=== PATIENT | female | born 1995 | race Caucasian/White ===

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

== ENCOUNTER 2017-03-24 01:33 | Emergency (ER) | payer OTHER ==
[~2017-03-24] VITALS: Ht 167.6 cm; Wt 56.3 kg
--- NOTE | 2017-03-24 02:17 | EMERGENCY ROOM VISIT NOTE ---
History Report prepared by Reymundo: Arvin Pickering Under the Supervision of: Feliciano LawO. First contact with patient: 01:48 Chief Complaint: FEVER Stated Complaint: FEVER 36+HRS,UPPER RT CHEST PAINS/RIBS History of Present Illness The patient is a 21 year old female who presents to the Emergency Room with complaints of a constant fever for the past two days. The patient additionally complains of sharp rib pain and chest pain which is worsened with deep inspiration, eating, and drinking which started this morning. The patient denies any retching or hard coughing or vomiting. The patient denies any current cough, nausea, vomiting, diarrhea, urinary symptoms, sore throat, rash, leg cramping or swelling. She states that two days ago she was nauseous and light headed. She denies any active medical problems or digestive problems in the past. She took extra strength acetaminophen for the chest pain. She states that her last period was two weeks ago. Source of History: patient Onset: two days ago Position: other (global ) Quality: other (fever) Timing: constant Associated Symptoms: + chest pain, No sorethroat, No cough, No nausea, No vomiting, No diarrhea, No urinary symptoms, No rash Note: Associated symptoms: Rib pain Review of Systems See HPI for pertinent positives & negatives. A total of 10 systems reviewed and were otherwise negative. Past Medical & Surgical Medical Problems: (1) Nexplanon insertion Family History Cancer Social History Smoking Status: Never Smoker Housing Status: lives with roommate Occupation Status: [employer] student Current/Historical Medications Scheduled PRN Acetaminophen (Tylenol), 500-1,000 MG PO DIRECTED PRN for Pain or Fever Allergies Coded Allergies: Aspirin (Verified Allergy, Severe, HIVES, 03/24/17) Physical Exam Vital Signs Date Time Temp Pulse Resp B/P (MAP) Pulse Ox O2 Delivery O2 Flow Rate FiO2 03/24/17 06:17 36.8 61 20 104/58 96 03/24/17 05:37 63 20 99/54 97 Room Air 03/24/17 04:56 37.7 97 16 116/74 98 Room Air 03/24/17 03:51 38.8 96 16 104/49 98 Room Air 03/24/17 03:05 72 17 113/60 99 Room Air 03/24/17 03:05 99 Room Air 03/24/17 01:38 37.3 108 18 94/52 95 Room Air Physical Exam HEENT: Head - normocephalic and atraumatic Pupils are equal, round, and reactive to light. Extraocular eye muscles are intact, and sclera are anicteric. Nose - moist nasal mucosa without discharge. Mouth - moist buccal mucosa. Oropharynx is nonerythematous and there is no tonsillar exudate or edema noted. Neck: Supple; no JVD, nuchal rigidity, cervical lymphadenopathy. Heart: Regular rate and rhythm. There is a normal S1 and S2 with no murmurs, clicks, or gallops appreciated. Lungs: Clear to auscultation bilaterally with no wheezes, rales, or rhonchi. Chest: Reproducible pain with palpation over the anterior, lateral, and inferior chest wall. Abdomen: Soft, completely nontender, nondistended, with good bowel sounds. There are no palpable pulsatile masses or hepatosplenomegaly. There is no guarding, rigidity, or rebound noted. Extremities: No evidence of cyanosis, clubbing, or edema. There are easily palpable peripheral pulses. Skin: warm and dry with good turgor and no rashes. Medical Decision & Procedures ER Provider Diagnostic Interpretation: X-ray results as stated below per interpretation by me: No acute pulmonary infiltrate. No pneumothorax. Laboratory Results 03/24/17 02:10 Red Blood Count 4.56, Mean Corpuscular Volume 88.6, Mean Corpuscular Hemoglobin 30.0, Mean Corpuscular Hemoglobin Concent 33.9, Mean Platelet Volume 10.1, Neutrophils (%) (Auto) 76.1, Lymphocytes (%) (Auto) 13.9, Monocytes (%) (Auto) 9.7, Eosinophils (%) (Auto) 0.1, Basophils (%) (Auto) 0.1, Neutrophils # (Auto) 6.50, Lymphocytes # (Auto) 1.19, Monocytes # (Auto) 0.83, Eosinophils # (Auto) 0.01, Basophils # (Auto) 0.01 03/24/17 02:10 Test 03/24/17 02:10 03/24/17 02:18 White Blood Count 8.55 K/uL (4.8-10.8) Red Blood Count 4.56 M/uL (4.2-5.4) Hemoglobin 13.7 g/dL (12.0-16.0) Hematocrit 40.4 % (37-47) Mean Corpuscular Volume 88.6 fL (80-100) Mean Corpuscular Hemoglobin 30.0 pg (25-34) Mean Corpuscular Hemoglobin Concent 33.9 g/dl (32-36) Platelet Count 148 K/uL (130-400) Mean Platelet Volume 10.1 fL (7.4-10.4) Neutrophils (%) (Auto) 76.1 % Lymphocytes (%) (Auto) 13.9 % Monocytes (%) (Auto) 9.7 % Eosinophils (%) (Auto) 0.1 % Basophils (%) (Auto) 0.1 % Neutrophils # (Auto) 6.50 K/uL (1.4-6.5) Lymphocytes # (Auto) 1.19 K/uL (1.2-3.4) Monocytes # (Auto) 0.83 K/uL (0.11-0.59) Eosinophils # (Auto) 0.01 K/uL (0-0.5) Basophils # (Auto) 0.01 K/uL (0-0.2) RDW Standard Deviation 40.6 fL (36.4-46.3) RDW Coefficient of Variation 12.7 % (11.5-14.5) Immature Granulocyte % (Auto) 0.1 % Immature Granulocyte # (Auto) 0.01 K/uL (0.00-0.02) Prothrombin Time 12.4 SECONDS (9.0-12.0) Prothromb Time International Ratio 1.2 (0.9-1.1) Activated Partial Thromboplast Time 28.9 SECONDS (21.0-31.0) Partial Thromboplastin Ratio 1.1 D-Dimer 200 ug/L FEU (0-500) Urine Color DK YELLOW Urine Appearance CLOUDY (CLEAR) Urine pH 6.5 (4.5-7.5) Urine Specific [place] 1.023 (1.000-1.030) Urine Protein 1+ (NEG) Urine Glucose (UA) NEG (NEG) Urine Ketones 1+ (NEG) Urine Occult Blood NEG (NEG) Urine Nitrite NEG (NEG) Urine Bilirubin NEG (NEG) Urine Urobilinogen NEG (NEG) Urine Leukocyte Esterase MODERATE (NEG) Urine WBC (Auto) >30 /hpf (0-5) Urine RBC (Auto) 0-4 /hpf (0-4) Urine Hyaline Casts (Auto) >30 /lpf (0-5) Urine Epithelial Cells (Auto) >30 /lpf (0-5) Urine Bacteria (Auto) 1+ (NEG) Urine Mucus PRESENT (NONE PRSENT) Anion Gap 7.0 mmol/L (3-11) Est Creatinine Clear Calc Drug Dose 111.7 ml/min Estimated GFR () 140.7 Estimated GFR (Non- 121.4 BUN/Creatinine Ratio 14.7 (10-20) Calcium Level 8.5 mg/dl (8.5-10.1) Total Bilirubin 0.5 mg/dl (0.2-1) Aspartate Amino Transf (AST/SGOT) 15 U/L (15-37) Alanine Aminotransferase (ALT/SGPT) 19 U/L (12-78) Alkaline Phosphatase 70 U/L (45-117) Total Protein 7.2 gm/dl (6.4-8.2) Albumin 4.0 gm/dl (3.4-5.0) Globulin 3.2 gm/dl (2.5-4.0) Albumin/Globulin Ratio 1.3 (0.9-2) Bedside Lactic Acid Venous 0.82 mmol/L (0.90-1.70) Laboratory results per my review. Medications Administered Medications (Trade) Dose Ordered Sig/Sophia Route Start Time Stop Time Status Last Admin Dose Admin Sodium Chloride 1,000 ml @ 999 mls/hr Q1H1M STAT IV 03/24/17 02:34 03/24/17 03:34 DC 03/24/17 02:49 999 MLS/HR Acetaminophen (Tylenol Tab) 1,000 mg STK-MED ONCE PO 03/24/17 03:54 03/24/17 03:55 DC 03/24/17 03:56 1,000 MG Ketorolac Tromethamine (Toradol Inj) 30 mg NOW STAT IV 03/24/17 05:03 03/24/17 05:04 DC 03/24/17 05:14 30 MG Procedure Sodium Chloride IV, Tylenol Tab PO, Toradol IV ED Course 0148: Past medical records reviewed. The patient was evaluated in room B10. A complete history and physical exam was performed. A septic protocol was performed. An IV lock was initiated and labs are drawn as above. 0234: Sodium Chloride 1000 ml @ 999 mls/hr IV. The patient had chest x-ray as described above. 0350:.Tylenol Tab 1000mg PO 0425: I reevaluated the patient, and she was sweating, and her fever broke and temperature was down 0500: I reassessed the patient, and she is going to have a close follow up with [facility] for a recheck 0503: Toradol Inj 30mg IV 0610: I reevaluated the patient, and she was feeling much better. She will be discharged home. Medical Decision The patient is a 21 year old female who presents to the ED with fever. Differential diagnosis includes pneumonia, PE, esophagitis, and URI lab results show: normal white count, normal H&H, lactic acid 0.8, normal LFTs and glucose, normal renal function, D-dimer of 200, urine appears to be cloudy and most likely contaminated but will be sent for culture. This is a 21-year-old female patient presents to the emergency department with right-sided chest pain and fever. The patient has no hypoxia or cough. Chest x -ray shows no evidence of a pneumonia. I spent some time talking to the patient and her boyfriend about her complaint of pain with swallowing. She has no history consistent with an esophageal tear or mediastinitis. The patient was told to return to the emergency department immediately if she developed worsening symptoms. Otherwise, she can follow-up with [facility] later today for recheck. Impression Primary Impression: Right-sided chest pain Additional Impression: Fever Scribe Attestation The scribe's documentation has been prepared under my direction and personally reviewed by me in its entirety. I confirm that the note above accurately reflects all work, treatment, procedures, and medical decision making performed by me. Departure Information Dispostion Home / Self-Care Referrals No Doctor, Assigned (PCP) Forms HOME CARE DOCUMENTATION FORM, IMPORTANT VISIT INFORMATION Patient Instructions My [facility] Additional Instructions Rest Take tylenol for fever. Please follow up at [facility] for a recheck this afternoon. Return to the ER for any worsening symptoms Problem Qualifiers Additional Impression: Fever Fever type: unspecified Qualified Codes: R50.9 - Fever, unspecified
[2017-03-24] MEDS ORDERED: SODIUM CHLORIDE 0.9% 1000ML 1,000 ML IV STA (02:34)
[2017-03-24 02:36] LABS: BASO % 0.1 %; BASO ABS # 0.01 K/uL (0-0.2); COMPLETE YES; EOS % 0.1 %; HEMATOCRIT 40.4 % (37-47); IG% 0.1 %; LYMPH % 13.9 %; LYMPH ABS # 1.19 K/uL (1.2-3.4); MEAN CELL VOLUME 88.6 fL (80-100); MEAN CORPUSCULAR HGB CONC 33.9 g/dl (32-36); MEAN PLATELET VOLUME 10.1 fL (7.4-10.4); MONO % 9.7 %; NEUT % 76.1 %; PLATELET COUNT 148 K/uL (130-400); RED BLOOD COUNT 4.56 M/uL (4.2-5.4); WHITE BLOOD COUNT 8.55 K/uL (4.8-10.8)
[2017-03-24 02:41] VITALS: Ht 167.6 cm; Wt 56.3 kg
[2017-03-24 02:41] LABS: URINE APPEARANCE CLOUDY (CLEAR); URINE BILIRUBIN NEG (NEG); URINE COLOR DK YELLOW; URINE EPITHELIAL CELL AUTO >30 /lpf (0-5); URINE NITRITE NEG (NEG); URINE PH 6.5 (4.5-7.5); URINE SPECIFIC GRAVITY 1.023 (1.000-1.030); UROBILINOGEN NEG (NEG); ZZUR CULT IF INDIC CLEAN CATCH YES
[2017-03-24 02:49] LABS: MANUAL MICROSCOPIC REQUIRED? NO; REVIEW REQ? YES
[2017-03-24 02:57] LABS: INR 1.2 (0.9-1.1); PARTIAL THROMBOPLASTIN RATIO 1.1; PROTHROMBIN TIME (PATIENT) 12.4 SECONDS (9.0-12.0)
[2017-03-24 03:04] LABS: BUN/CREATININE RATIO 14.7 (10-20); CALCIUM 8.5 mg/dl (8.5-10.1); CREATININE 0.72 mg/dl (0.60-1.20); POTASSIUM 3.6 mmol/L (3.5-5.1)
[2017-03-24 03:05] VITALS: O2SAT 99
[2017-03-24 03:06] LABS: ALB/GLOB RATIO 1.3 (0.9-2)
[2017-03-24 03:08] LABS: URINE MUCUS PRESENT (NONE PRSENT)
[2017-03-24] MEDS ORDERED: ACETAMINOPHEN 500 MG TAB PO ONE (03:54)
[2017-03-24] MEDS ORDERED: KETOROLAC TROMETHAMINE 30 MG/ML VIAL IV STA (05:03)
[2017-03-24 06:17] VITALS: BP 104/58; PULSE 61; TEMP 36.8; O2SAT 96
--- NOTE | 2017-03-24 06:54 | DIAGNOSTIC IMAGING REPORT ---
CHEST 2 VIEWS ROUTINE CLINICAL HISTORY: 21 years-old Female presenting with right chest pain. TECHNIQUE: PA and lateral views of the chest were obtained. COMPARISON: None. FINDINGS: Cardiomediastinal silhouette normal. Lungs and pleural spaces clear. Osseous structures normal. Upper abdomen normal. IMPRESSION: 1. No acute cardiopulmonary disease. Electronically signed by: Kamaljit Bonner M.D. 03/24/2017 6:53 AM Dictated Date/Time: 03/24/2017 6:52 AM
[2017-03-25] MEDS ORDERED: ACET-1256 PO (01:58)
[2017-03-25] MEDS ORDERED: SULF800T23 PO (23:26)
== END 2017-03-24 06:17 | disposition home or self-care (01) ==
LOC: C.EDB 01:35
DX: R50.9 Fever, unspecified (principal); R07.9 Chest pain, unspecified; Z80.9 Family history of malignant neoplasm, unspecified

== ENCOUNTER 2017-03-25 18:50 | Emergency (ER) | payer OTHER ==
[~2017-03-25] VITALS: Ht 167.6 cm; Wt 55.6 kg
[~2017-03-25 18:50] MED LIST: ACET-1256 PO
[2017-03-25 18:58] VITALS: Ht 167.6 cm; Wt 55.6 kg
[2017-03-25] MEDS ORDERED: SODIUM CHLORIDE 0.9% 1000ML 1,000 ML IV STA (19:55)
[2017-03-25] MEDS ORDERED: ONDANSETRON INJ 2 MG/ML 2 ML VIAL IV STA (19:55)
[2017-03-25 20:48] LABS: INR 1.2 (0.9-1.1); PARTIAL THROMBOPLASTIN RATIO 1.2; PROTHROMBIN TIME (PATIENT) 12.5 SECONDS (9.0-12.0)
[2017-03-25 20:50] LABS: COMPLETE YES; HEMATOCRIT 40.9 % (37-47); IG% 0.1 %; LYMPH % 15.2 %; LYMPH ABS # 1.23 K/uL (1.2-3.4); MEAN CELL VOLUME 88.5 fL (80-100); MEAN CORPUSCULAR HEMOGLOBIN 30.7 pg (25-34); MEAN CORPUSCULAR HGB CONC 34.7 g/dl (32-36); MEAN PLATELET VOLUME 10.4 fL (7.4-10.4); MONO % 11.5 %; NEUT % 73.2 %; PLATELET COUNT 157 K/uL (130-400); RED BLOOD COUNT 4.62 M/uL (4.2-5.4); WHITE BLOOD COUNT 8.09 K/uL (4.8-10.8)
[2017-03-25] MEDS ORDERED: KETOROLAC TROMETHAMINE 30 MG/ML VIAL IV STA (21:02)
[2017-03-25 21:08] LABS: MANUAL MICROSCOPIC REQUIRED? NO; REVIEW REQ? NO; URINE APPEARANCE CLEAR (CLEAR); URINE BILIRUBIN NEG (NEG); URINE COLOR YELLOW; URINE EPITHELIAL CELL AUTO 20-30 /lpf (0-5); URINE NITRITE NEG (NEG); URINE SPECIFIC GRAVITY 1.015 (1.000-1.030); UROBILINOGEN NEG (NEG)
[2017-03-25 21:27] LABS: ALKALINE PHOSPHATASE 68 U/L (45-117); ALT/SGPT 16 U/L (12-78); AST/SGOT 14 U/L (15-37); BUN/CREATININE RATIO 8.4 (10-20); CALCIUM 9.6 mg/dl (8.5-10.1); CARBON DIOXIDE 27 mmol/L (21-32); CHLORIDE 106 mmol/L (98-107); CREATININE 0.62 mg/dl (0.60-1.20); GLUCOSE 89 mg/dl (70-99); MAGNESIUM 2.1 mg/dl (1.8-2.4); SODIUM 138 mmol/L (136-145); THYROID STIMULATING HORMONE 0.985 uIu/ml (0.300-4.500)
[2017-03-25 21:28] LABS: BLOOD UREA NITROGEN 5 mg/dl (7-18)
[2017-03-25 21:51] LABS: PREG INTERNAL NEGATIVE QC NEG CLEAR BACKGROUND; PREG INTERNAL POSITIVE QC POS CONTROL LINE
--- NOTE | 2017-03-25 22:14 | DIAGNOSTIC IMAGING REPORT ---
GALLBLADDER-ABD LIMITED CLINICAL HISTORY: 21 years-old Female presenting with RUQ pain. TECHNIQUE: Real-time grayscale and limited color Doppler ultrasound imaging of the abdomen limited to the right upper quadrant was performed. COMPARISON: None. FINDINGS: Pancreas: Visualized portions of the pancreatic head and body normal. Liver: Normal echogenicity and echotexture. No sonographic evidence of hepatic mass. Main portal vein patent with normal directional flow. Biliary: No intrahepatic biliary ductal dilatation. Common bile duct measures up to 3 mm in diameter. Gallbladder: No evidence of gallstones, gallbladder wall thickening, gallbladder distention, or pericholecystic fluid or inflammatory change. Right kidney: Hyperechoic 5 mm shadowing focus with twinkling artifact consistent with right renal calculus. No hydronephrosis. Ascites: None. IMPRESSION: 1. No cholelithiasis or biliary ductal dilatation. 2. Nonobstructing 5 mm right renal calculus. Electronically signed by: Kamaljit Bonner M.D. 03/25/2017 10:13 PM Dictated Date/Time: 03/25/2017 10:11 PM
--- NOTE | 2017-03-25 22:17 | EMERGENCY ROOM VISIT NOTE ---
History Report prepared by Zoyaiblalitha: Saritha Fowler Under the Supervision of: Dr. Lucho Menon M.D. First contact with patient: 19:45 Chief Complaint: RIB PAIN Stated Complaint: RT CHEST/RIB PAIN, SHOULDER BLADE PAIN, FEVER History of Present Illness The patient is a 21 year old female who presents to the Emergency Room with complaints of worsening rib pain for the past 3 days. She rates her discomfort as an 8/10 in severity. She was seen here in the ED approximately 1 day ago for a fever and the same rib pain. When her symptoms worsened this afternoon, she called S and was referred here to the ED for her symptoms. She states her fevers are intermittent, noting "they will "break and then come back again". Her last fever was around 1715 this evening and she states her temperature was 101 degrees. She denies any cough. She admits to a decreased appetite but has been trying to stay hydrated. The last time she ate was "late last night". She complains of abdominal pain, rating her discomfort as a 7/10 in severity. She has been nauseous but has not vomited. The patient does admit to two recent urinary tract infections, and states she used "home remedies" to treat them. She denies any recent hematuria, dysuria or increased urinary frequency.She has also experienced some upper back pain, stating the pain is "sharp" and between her shoulder blades. She denies any recent car or plane travel. The patient denies any LOC, headache, chills, diaphoresis, visual changes, neck pain, chest pain, breathing difficulties, melena, hematochezia, numbness, weakness, lymphadenopathy, rash, or other complaints. She denies any chronic medical problems and takes no daily medications. She denies any family history of bowel problems or kidney problems. 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 A total of ten systems were reviewed and were otherwise negative. Past Medical & Surgical Medical Problems: (1) Nexplanon insertion Family History Cancer Social History Smoking Status: Never Smoker Alcohol Use: occasionally Drug Use: none Marital Status: single Housing Status: lives with roommate Occupation Status: [employer] student Current/Historical Medications Scheduled PRN Acetaminophen (Tylenol), 500-1,000 MG PO UD PRN for Pain or Fever Allergies Coded Allergies: Aspirin (Verified Allergy, Severe, HIVES, 03/24/17) Physical Exam Vital Signs Date Time Temp Pulse Resp B/P (MAP) Pulse Ox O2 Delivery O2 Flow Rate FiO2 03/25/17 22:42 37.4 03/25/17 21:14 73 18 106/61 100 Room Air 03/25/17 20:37 76 03/25/17 18:58 37.2 89 18 117/76 98 Room Air Physical Exam GENERAL: Awake, alert, well-appearing, in no distress HENT: Normocephalic, atraumatic. Oropharynx unremarkable. EYES: Normal conjunctiva. Sclera non-icteric. NECK: Supple. No nuchal rigidity. FROM. No JVD. RESPIRATORY: Clear to auscultation. CARDIAC: Regular rate, normal rhythm. Extremities warm and well perfused. Pulses equal. ABDOMEN: Soft, non-distended. Right upper quadrant abdominal tenderness. No rebound or guarding. No masses. RECTAL: Deferred. MUSCULOSKELETAL: Chest examination reveals no tenderness. The back is symmetrical on inspection without obvious abnormality. Right sided CVA tenderness to palpation. No joint edema. LOWER EXTREMITIES: Calves are equal size bilaterally and non-tender. No edema. No discoloration. NEURO: Normal sensorium. No sensory or motor deficits noted. SKIN: No rash or jaundice noted. Medical Decision & Procedures ER Provider Diagnostic Interpretation: BEDSIDE ULTRASOUND No gallbladder wall thickening, no obvious stones in the gallbladder. Possible stone within the right kidney. No fluid in Morison's pouch. Radiology results as stated below per my review and radiologist interpretation: GALLBLADDER-ABD LIMITED CLINICAL HISTORY: 21 years-old Female presenting with RUQ pain. TECHNIQUE: Real-time grayscale and limited color Doppler ultrasound imaging of the abdomen limited to the right upper quadrant was performed. COMPARISON: None. FINDINGS: Pancreas: Visualized portions of the pancreatic head and body normal. Liver: Normal echogenicity and echotexture. No sonographic evidence of hepatic mass. Main portal vein patent with normal directional flow. Biliary: No intrahepatic biliary ductal dilatation. Common bile duct measures up to 3 mm in diameter. Gallbladder: No evidence of gallstones, gallbladder wall thickening, gallbladder distention, or pericholecystic fluid or inflammatory change. Right kidney: Hyperechoic 5 mm shadowing focus with twinkling artifact consistent with right renal calculus. No hydronephrosis. Ascites: None. IMPRESSION: 1. No cholelithiasis or biliary ductal dilatation. 2. Nonobstructing 5 mm right renal calculus. Electronically signed by: Kamaljit Bonner M.D. 03/25/2017 10:13 PM Dictated Date/Time: 03/25/2017 10:11 PM Laboratory Results 03/25/17 20:25 Red Blood Count 4.62, Mean Corpuscular Volume 88.5, Mean Corpuscular Hemoglobin 30.7, Mean Corpuscular Hemoglobin Concent 34.7, Mean Platelet Volume 10.4, Neutrophils (%) (Auto) 73.2, Lymphocytes (%) (Auto) 15.2, Monocytes (%) (Auto) 11.5, Eosinophils (%) (Auto) 0.0, Basophils (%) (Auto) 0.0, Neutrophils # (Auto ) 5.92, Lymphocytes # (Auto) 1.23, Monocytes # (Auto) 0.93, Eosinophils # (Auto ) 0.00, Basophils # (Auto) 0.00 03/25/17 20:25 Test 03/25/17 20:25 03/25/17 20:34 White Blood Count 8.09 K/uL (4.8-10.8) Red Blood Count 4.62 M/uL (4.2-5.4) Hemoglobin 14.2 g/dL (12.0-16.0) Hematocrit 40.9 % (37-47) Mean Corpuscular Volume 88.5 fL (80-100) Mean Corpuscular Hemoglobin 30.7 pg (25-34) Mean Corpuscular Hemoglobin Concent 34.7 g/dl (32-36) Platelet Count 157 K/uL (130-400) Mean Platelet Volume 10.4 fL (7.4-10.4) Neutrophils (%) (Auto) 73.2 % Lymphocytes (%) (Auto) 15.2 % Monocytes (%) (Auto) 11.5 % Eosinophils (%) (Auto) 0.0 % Basophils (%) (Auto) 0.0 % Neutrophils # (Auto) 5.92 K/uL (1.4-6.5) Lymphocytes # (Auto) 1.23 K/uL (1.2-3.4) Monocytes # (Auto) 0.93 K/uL (0.11-0.59) Eosinophils # (Auto) 0.00 K/uL (0-0.5) Basophils # (Auto) 0.00 K/uL (0-0.2) RDW Standard Deviation 40.8 fL (36.4-46.3) RDW Coefficient of Variation 12.6 % (11.5-14.5) Immature Granulocyte % (Auto) 0.1 % Immature Granulocyte # (Auto) 0.01 K/uL (0.00-0.02) Prothrombin Time 12.5 SECONDS (9.0-12.0) Prothromb Time International Ratio 1.2 (0.9-1.1) Activated Partial Thromboplast Time 30.6 SECONDS (21.0-31.0) Partial Thromboplastin Ratio 1.2 D-Dimer < 190 ug/L FEU (0-500) Anion Gap 6.0 mmol/L (3-11) Est Creatinine Clear Calc Drug Dose 128.1 ml/min Estimated GFR () > 150.0 Estimated GFR (Non- 130.7 BUN/Creatinine Ratio 8.4 (10-20) Calcium Level 9.6 mg/dl (8.5-10.1) Magnesium Level 2.1 mg/dl (1.8-2.4) Total Bilirubin 0.4 mg/dl (0.2-1) Direct Bilirubin 0.1 mg/dl (0-0.2) Aspartate Amino Transf (AST/SGOT) 14 U/L (15-37) Alanine Aminotransferase (ALT/SGPT) 16 U/L (12-78) Alkaline Phosphatase 68 U/L (45-117) Troponin I < 0.015 ng/ml (0-0.045) Total Protein 7.8 gm/dl (6.4-8.2) Albumin 4.0 gm/dl (3.4-5.0) Lipase 92 U/L (73-393) Thyroid Stimulating Hormone (TSH) 0.985 uIu/ml (0.300-4.500) Human Chorionic Gonadotropin, Qual NEG (NEG) Urine Color YELLOW Urine Appearance CLEAR (CLEAR) Urine pH 7.0 (4.5-7.5) Urine Specific [place] 1.015 (1.000-1.030) Urine Protein NEG (NEG) Urine Glucose (UA) NEG (NEG) Urine Ketones TRACE (NEG) Urine Occult Blood NEG (NEG) Urine Nitrite NEG (NEG) Urine Bilirubin NEG (NEG) Urine Urobilinogen NEG (NEG) Urine Leukocyte Esterase TRACE (NEG) Urine WBC (Auto) 5-10 /hpf (0-5) Urine RBC (Auto) 0-4 /hpf (0-4) Urine Hyaline Casts (Auto) 1-5 /lpf (0-5) Urine Epithelial Cells (Auto) 20-30 /lpf (0-5) Urine Bacteria (Auto) NEG (NEG) Laboratory results reviewed by me Medications Administered Medications (Trade) Dose Ordered Sig/Sophia Route Start Time Stop Time Status Last Admin Dose Admin Sodium Chloride 1,000 ml @ 999 mls/hr Q1H1M STAT IV 03/25/17 19:55 03/25/17 20:55 DC 03/25/17 20:52 999 MLS/HR Ondansetron HCl (Zofran Inj) 4 mg NOW STAT IV 03/25/17 19:55 03/25/17 19:56 DC 03/25/17 20:53 4 MG Ketorolac Tromethamine (Toradol Inj) 10 mg NOW STAT IV 03/25/17 21:02 03/25/17 21:04 DC 03/25/17 21:14 10 MG ECG Indication: abdominal pain Rate (beats per minute): 80 Rhythm: normal sinus Findings: no acute ischemic change, no ectopy, other (No pericarditis) ED Course 1951: The patient was evaluated in room A11B. A complete history and physical exam was performed. 1954: Zofran 4 mg IV, NSS 1000 ml @ 999 mls/hr IV. 2099: I reevaluated the patient. Her nausea is better but she still has some abdominal pain. I will order pain medication. 2101: Toradol 10 mg IV. 2239: Patient reassessed. She is feeling better. Toradol and Zofran worked for her symptoms. Repeat temperature is 37.4. CT imaging ordered. Patient informed. 2314: The patient was reassessed and was feeling better. CT imaging reveals findings concerning for pyelonephritis. Records were reviewed again from yesterday and her urine culture is now growing Escherichia coli. It appears the patient has pyelonephritis. IV Rocephin was ordered. She will be treated with Bactrim as an outpatient. She will follow up with [facility]. Medical Decision Triage Nursing notes reviewed. The patient's presentation and history were concerning for right upper abdominal pain, flank pain, and right chest pain. Etiologies such as biliary pathology, UTI, renal colic, appendicitis, diverticulitis, mesenteric ischemia, aortic pathology, infections, inflammatory bowel disease, PUD, cardiac sources, PE, as well as others were entertained. The patient was evaluated. On physical examination she was tender in the right upper quadrant and right CVA area. I did a limited bedside ultrasound and there wasn't any obvious problems the gallbladder. There was possible kidney stone in the right kidney. The patient had blood work obtained. She was hydrated, she was given Zofran and Toradol. The patient was sent for formal ultrasound imaging. This did not reveal any abnormalities with the gallbladder or liver. There was the stone noted within the renal parenchyma but there is no evidence of hydronephrosis. The patient's CBC, chemistry panel, LFTs, lipase, urinalysis and test were unremarkable. D-dimer and troponin were negative. ECG was unremarkable. The patient was feeling better with the Toradol and Zofran as above. She was sent for CT imaging. CT imaging revealed findings suggestive pyelonephritis. The patient's urine culture from yesterday is now growing Escherichia coli. Rocephin was given. She will follow up with [facility]. She will be treated with Bactrim as an outpatient. She felt comfortable with the plan. By the evaluation outlined above other emergent etiologies such as those listed in the differential, as well as others, were deemed relatively unlikely. The patient was educated about the findings as listed above. All questions were answered and the patient was pleased with the treatment. Return instructions were outlined and the patient was discharged in stable condition. The patient was referred to [facility] for follow-up for a recheck of the current condition. Medication Reconcilliation Current Medication List: was personally reviewed by me Blood Pressure Screening Patient's blood pressure: Normal blood pressure Blood pressure disposition: Did not require urgent referral Impression Primary Impression: Pyelonephritis Scribe Attestation The scribe's documentation has been prepared under my direction and personally reviewed by me in its entirety. I confirm that the note above accurately reflects all work, treatment, procedures, and medical decision making performed by me. Departure Information Dispostion Home / Self-Care Prescriptions Sulfa/Trimethoprim (Bactrim Ds 800MG/160MG) Tab 1 TAB PO BID, #12 TAB Prov: Lucho Menon MD 03/25/17 Referrals No Doctor, Assigned (PCP) Patient Instructions My [facility] Additional Instructions Diagnosis: Pyelonephritis (kidney infection) Trimethoprim-Sulfamethoxazole(Bactrim DS): Take one pill twice daily for 7 days for your kidney infection. All antibiotics can cause diarrhea. If this occurs and you feel worse or it does not resolve in 1-2 days follow up with your doctor or return to the Emergency Department as this could be signs of serious underlying problems. Any medication can cause an allergic reaction, stop the pills immediately and return to the ER for rash, hives, breathing difficulties, or swelling. Ibuprofen(Motrin, Advil) may be used for fever or pain. Use 600mg every six hours as needed. Take with food. Avoid using more than 2400mg in a 24 hour period. Do not use 2400mg per day for more than three consecutive days without physician direction. Prolonged inappropriate use can lead to stomach upset or ulcers. (AND/OR) Acetaminophen(Tylenol) may be used for fever or pain. Use 1000mg every six hours as needed. Avoid using more than 3000mg in a 24 hour period. Rest and drink plenty of fluids. Continue current medications. Return to the ER immediately for worsening or persistent abdominal pain, vomiting, fevers, back or flank pain, worsening of your condition, or as needed. Follow up with [facility] Tuesday for a recheck of the current condition. Call back to the emergency department tomorrow evening for an update on the culture result from the fifth.
[2017-03-25 22:42] VITALS: TEMP 37.4
[2017-03-25] MEDS ORDERED: OPTIRAY 320 IV PRN (22:45)
--- NOTE | 2017-03-25 23:05 | DIAGNOSTIC IMAGING REPORT ---
ABD/PELVIS COMBO CLINICAL HISTORY: 21 years-old Female presenting with Right flank and abd pain. US showed stone in R kidney. No hydro. TECHNIQUE: Multidetector CT of the abdomen and pelvis was performed before and after the administration of intravenous contrast. IV contrast: 116 mL of Optiray 320. A dose lowering technique was used consistent with the principles of ALARA (as low as reasonably achievable). COMPARISON: Ultrasound performed earlier the same day. CT DOSE (mGy.cm): The estimated cumulative dose is 544.05 mGy.cm. FINDINGS: Film Laboratory Technician topogram: Unremarkable. Lung bases: Minimal dependent changes likely atelectasis. Normal heart size. No pericardial or pleural effusion. Liver: Normal morphology. Perfusional variation noted along the fissure for the ligamentum teres. No liver lesion. Patent hepatic vasculature. Biliary: No intrahepatic or extrahepatic biliary ductal dilatation. Normal gallbladder. Pancreas: Normal. Spleen: Normal. Adrenal glands: Normal. Kidneys and ureters: Nonobstructing 6 mm calculus in the interpolar region of the right kidney. Additional punctate calculus at the right upper pole suggested (series 3 image 116). Heterogeneity of enhancement of the medial upper pole of the right kidney (series 4 images 22 and 21). Left kidney normal. No hydronephrosis. Mild prominence of the right ureter without evidence of obstructing calculus. Bladder: Normal. Pelvic organs: Uterus normal. Multiple ovarian follicles suggested bilaterally. Ovaries are not well-defined. Bowel: Normal. Mild stool burden. No bowel obstruction. Peritoneal cavity: Trace free fluid in the pelvis. Lymph nodes: Few prominent lymph nodes in the retrocaval region, likely reactive. No pathologically enlarged lymph nodes by CT size criteria. Vasculature: Aorta and IVC patent and normal in caliber. Abdominal wall: Normal. Musculoskeletal: Normal. IMPRESSION: 1. Heterogeneity of enhancement at the upper pole of the right kidney is indeterminate. Differential considerations include lobar nephronia/focal pyelonephritis versus less likely infarct or underlying lesion. Correlate with urinalysis. 2. Nonobstructing 6 mm calculus in the right kidney and additional punctate calculus at the upper pole. 3. Trace free fluid is likely physiologic. 4. Ovaries poorly defined on CT likely with multiple follicles. If there is clinical concern for ovarian pathology, pelvic ultrasound should be obtained. Electronically signed by: Kamaljit Bonner M.D. 03/25/2017 11:04 PM Dictated Date/Time: 03/25/2017 10:56 PM
[2017-03-25] MEDS ORDERED: ONDANSETRON HOME PACK 4MG OD TAB PO ONE (23:15)
[2017-03-25] MEDS ORDERED: CEFTRIAXONE SOD INJ 1 GM ADDVIAL IV STA (23:15)
[2017-03-25] MEDS ORDERED: SEPTRA DS HOME PACK 1 EA VIAL PO ONE (23:15)
[2017-03-25] MEDS ORDERED: SULF800T23 PO (23:26)
[2017-03-26 00:29] VITALS: BP 108/68; PULSE 78; O2SAT 100
== END 2017-03-26 00:31 | disposition home or self-care (01) ==
LOC: C.EDB 18:51 → C.EDA 03-26 00:31
DX: N12 Tubulo-interstitial nephritis, not specified as acute or chronic (principal); Z80.9 Family history of malignant neoplasm, unspecified

== ENCOUNTER → 2017-04-05 | Outpatient (CLI) | payer OTHER ==
[~2017-04-05] MED LIST changes: +SULF800T23 PO
--- NOTE | 2017-04-05 17:27 | DIAGNOSTIC IMAGING REPORT ---
(RENAL)RETROPERITON COMP HISTORY: 21 years-old Female PYELONEPHRITIS history of right-sided renal calculi. COMPARISON: CT 03/25/2017, right upper quadrant ultrasound 03/25/2017 TECHNIQUE: Multiple real-time sonographic images of the kidneys and urinary bladder were obtained assessing grayscale appearance and color flow FINDINGS: Right kidney measures 10.4 x 3.7 x 5.6 cm. Shadowing calculus of the interpolar right kidney is seen, 6 mm. No hydronephrosis. Cortical medullary differentiation is within normal limits. No perinephric fluid collections or abscess identified. Left kidney measures 10.9 x 4.4 x 5.0 cm and is unremarkable without renal calculi, hydronephrosis or mass lesion. Cortical medullary differentiation is preserved. Urinary bladder is collapsed. Ureteral jets not identified. IMPRESSION: 1. Nonobstructing 6 mm calculus of the interpolar right kidney with otherwise unremarkable sonographic appearance of the bilateral kidneys. No hydronephrosis. 2. Nondistended urinary bladder lumen. The above report was generated using voice recognition software. It may contain grammatical, syntax or spelling errors. Electronically signed by: Jose Parra M.D. 04/05/2017 5:25 PM Dictated Date/Time: 04/05/2017 5:21 PM
== END | disposition home or self-care (01) ==
LOC: C.ULTR 16:40
PROVIDERS: ATTEND Internal Medicine
DX: N12 Tubulo-interstitial nephritis, not specified as acute or chronic (principal); N20.0 Calculus of kidney

== ENCOUNTER 2017-07-31 14:46 | Emergency (ER) | payer OTHER ==
[~2017-07-31] VITALS: Ht 167.6 cm; Wt 58.5 kg
[2017-07-31 15:49] VITALS: Ht 167.6 cm; Wt 58.5 kg
[2017-07-31] MEDS ORDERED: XYLOCAINE 1%/SOD BICARB 20 ML VIAL INFIL ONE (16:00)
[2017-07-31 16:59] VITALS: BP 123/77; PULSE 72; TEMP 37.2; O2SAT 100
--- NOTE | 2017-07-31 18:13 | EMERGENCY ROOM VISIT NOTE ---
ED Visit Note First contact with patient: 15:53 CHIEF COMPLAINT: Finger laceration HISTORY OF PRESENT ILLNESS: This 21-year-old female patient presents to the emergency department after cutting the right fifth finger on a piece of glass at home about one hour ago. The bleeding has stopped. Denies weakness or numbness of the finger. The patient has full range of motion of the fingers. The patient rates the pain as minimal and 1/10. The patient denies any other injuries. The patient's tetanus shot is reportedly up to date. REVIEW OF SYSTEMS: A 6 system review of systems was completed with positives and pertinent negatives listed in the HPI. ALLERGIES: Aspirin MEDICATIONS: No chronic medications PMH: Otherwise healthy SOCIAL HISTORY: Student and lives locally PHYSICAL EXAM: Vital Signs: Reviewed Nurse's notes, vital signs stable. GENERAL : White female, in no acute distress, well developed, well nourished. SKIN: There is a 2.0 cm long laceration on the palmar distal aspect of the right fifth finger. The edges gape apart with traction. There is no foreign material in the wound and it looks clean. There is no significant bleeding. No deep structures such as tendons, bones, or significant blood vessels are seen in the base of the wound. Extension and flexion of the finger is full and strong. Full range of motion of the wrist and other fingers. Capillary refill less than 2 seconds. Normal sensation to light and sharp touch. EMERGENCY DEPARTMENT COURSE: I examined the patient. Verbal consent was obtained to perform the procedure. Using sterile technique the wound was cleansed with Betadine. 3 ml of 1% buffered lidocaine was used to perform a digital block to anesthetize the patient. The area was sterilely draped. Once the patient was anesthetized, the wound was copiously irrigated under pressure with sterile saline. The wound was explored and there were no deep structures injured. The laceration was repaired using 4 simple interrupted 5-0 nylon sutures. The patient tolerated the procedure well. Hemostasis was achieved. The area was cleaned with sterile saline and dressed with bacitracin ointment and bandage. The patient was discharged home in good condition. Problem List Medical Problems: (1) Nexplanon insertion Status: Chronic Current/Historical Medications No Active Prescriptions or Reported Meds Allergies Coded Allergies: Aspirin (Verified Allergy, Severe, HIVES, 03/24/17) Vital Signs Date Time Temp Pulse Resp B/P (MAP) Pulse Ox O2 Delivery O2 Flow Rate FiO2 07/31/17 16:59 37.2 72 16 123/77 100 07/31/17 15:49 37.2 72 16 123/77 100 Room Air Departure Information Impression Primary Impression: Laceration of finger Dispostion Home / Self-Care Condition FAIR Prescriptions No Active Prescriptions or Reported Meds Forms HOME CARE DOCUMENTATION FORM, IMPORTANT VISIT INFORMATION Patient Instructions My [facility], ED Laceration All, ED Scar Tips to Minimize Additional Instructions Keep wound clean and dry. Do not allow any crusting or dried blood to accumulate on sutures. If this occurs, use a mild soap/water on a Q-tip to clean the wound. Do not use Peroxide to clean the wound as this can delay healing Use an antibiotic ointment like Bacitracin for 3-4 days, then let wound dry. You may bathe and shower as normal, but DO NOT SOAK the wound. Suture removal in about 8-10 days with your Family Doctor or in the ER. Return sooner for any signs of infection, increasing redness, swelling, or drainage.
== END 2017-07-31 16:59 | disposition home or self-care (01) ==
LOC: C.EDB 14:47 → C.EDD 16:59
DX: S61.216A Laceration without foreign body of right little finger without damage to nail, initial encounter (principal); W25.XXXA Contact with sharp glass, initial encounter; Y92.009 Unspecified place in unspecified non-institutional (private) residence as the place of occurrence of the external cause